=== PATIENT | male | born 1945 | race Caucasian/White ===

== ENCOUNTER 2017-12-06 08:29 | Outpatient (CLI) | payer MEDICARE ==
--- NOTE | 2017-12-06 10:35 | ULT ---
ULTRASOUND PELVIS: HISTORY: Inguinal hernia. COMPARISON: None. FINDINGS: The prostate is enlarged measuring approximately 4.6 x 4.2 x 4.2 cm. Within the left dependent porti on of the urinary bladder, there is a soft tissue nodule without posterior acoustic enhancement or sh adowing measuring 5 x 5 mm. This is nonmobile. In real-time, there is an indirect right-sided inguinal hernia lateral to the inferior epigastric ves sels containing only mesenteric fat and not bowel. IMPRESSION: 1. Indirect right side inguinal hernia is seen during real-time examination by the radiologist obed inradha fat. 2. A 5 x 5 mm nodule within the dependent portion of the urinary bladder which is nonmobile. This m ay represent a small malignant process versus adherent polyp or stone. 3. Prostatomegaly. CODE: T POS: [place]
--- NOTE | 2017-12-06 10:47 | ULT ---
ABDOMINAL ULTRASOUND: History: Abdominal pain. Comparison: CT abdomen, 04-30-10 FINDINGS: Visualized portion of the pancreas is unremarkable. The mid aorta measures up to 2.2 x 2.4 x 2.3 cm. Right kidney measures 9.1 cm in length and the left kidney measures 9.8 cm in length and the left kid candice measures 9.8 cm in length. Common bile duct measures 3 mm. Spleen measures 6.7 cm in length. Hepatic echotexture appears normal. Portal vein is patent with antegrade flow. 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 This is similar to the 2010 CT examination. POS: [facility]
== END 2017-12-06 08:30 | disposition home or self-care (01) ==
LOC: ULT 08:29
PROVIDERS: ATTEND Specialist
DX: K40.90 Unilateral inguinal hernia, without obstruction or gangrene, not specified as recurrent (principal); I77.811 Abdominal aortic ectasia; N42.89 Other specified disorders of prostate; N32.89 Other specified disorders of bladder
CPT/HCPCS: 76700; 76856

== ENCOUNTER 2018-01-16 15:03 | Outpatient (CLI) | payer MEDICARE ==
[2018-01-16 16:06] LABS: #Basophils 0.1 thou/uL (0.0-0.2); #Eosinphils 0.1 thou/uL (0.0-0.7); #Lymphocytes 1.7 thou/uL (1.20-3.40); #Monocytes 0.5 thou/uL (0.11-0.59); #Neutrophils 4.1 thou/uL (1.40-6.50); %Eosinophils 1.5 % (0.0-10.0); %Lymphocytes 26.1 % (21.0-51.0); %Monocytes 7.5 % (0.0-10.0); %Neutrophils 63.9 % (42.0-75.0); Hemoglobin 13.8 g/dL (14.0-18.0); Mean Corpuscular HGB CONC 32.2 g/dL (32.0-36.0); Mean Corpuscular Hemoglobin 30.7 pg (27.0-31.0); Mean Corpuscular Volume 95.4 fl (80.0-94.0); Mean Platelet Volume 7.5 fL (7.4-10.4); Platelet Count 187 thou/uL (130-400); RBC Distribution Width 12.9 % (11.5-14.5); Red Blood Cell (RBC) Count 4.48 mill/uL (4.70-6.10); White Blood Cell (WBC) Count 6.4 thou/uL (4.8-10.8)
[2018-01-16 16:31] LABS: Anion Gap 8 mmol/L (10-20); BUN (Urea Nitrogen) 15 mg/dL (8.4-25.7); Calc. Creatinine Clearance 0 mL/min (70-130); Calcium 9.8 mg/dL (7.8-10.44); Carbon Dioxide 32 mmol/L (23-31); Chloride 102 mmol/L (98-107); Estimated GFR-MDRD 89; Glucose 101 mg/dL (80-115); Potassium 3.9 mmol/L (3.5-5.1); Sodium 138 mmol/L (136-145)
--- NOTE | 2018-01-18 08:11 | EKG ---
Test Reason : Blood Pressure : / mmHG Vent. Rate : 067 BPM Atrial Rate : 067 BPM P-R Int : 174 ms QRS Dur : 082 ms QT Int : 406 ms P-R-T Axes : 078 027 020 degrees QTc Int : 429 ms Poor data quality, interpretation may be adversely affected Normal sinus rhythm with sinus arrhythmia When compared with ECG of 25-FEB-2015 12:10, Premature atrial complexes are no longer Present Nonspecific T wave abnormality now evident in Inferior leads Confirmed by SHIELA CASTANON ([id number]) on 01/18/2018 8:10:48 AM Referred By: JAIME Confirmed By:SHIELA CASTANON
== END 2018-01-16 15:04 | disposition home or self-care (01) ==
LOC: LABBT 15:03
PROVIDERS: ATTEND Urology
DX: Z01.818 Encounter for other preprocedural examination (principal); K40.91 Unilateral inguinal hernia, without obstruction or gangrene, recurrent; C67.2 Malignant neoplasm of lateral wall of bladder; N40.1 Benign prostatic hyperplasia with lower urinary tract symptoms
CPT/HCPCS: 80048; 81001; 85025; 87086; 93005; 93010

== ENCOUNTER 2018-01-18 09:26 | Outpatient (CLI) | payer MEDICARE ==
[~2018-01-18 09:26] MED LIST: Iopamidol 370 76% 100 ML VIAL ONE
--- NOTE | 2018-01-18 11:25 | CT ---
CT ABDOMEN AND PELVIS WITH AND WITHOUT CONTRAST: HISTORY: Malignant neoplasm of the urinary bladder. The patient had a bladder nodule seen on prior ultrasound . COMPARISON: Pelvic ultrasound from 12/06/2017. TECHNIQUE: Multiple contiguous axial images were obtained in a CT of the abdomen and pelvis with and without IV contrast. Post contrast images were obtained in the nephrographic and excretory phases. Coronal ref ormats were performed. FINDINGS: The patient is status post cholecystectomy. The liver, kidneys, adrenal glands, spleen, and pancreas are unremarkable. No free air, free fluid, or stranding changes are seen in the abdomen or pelvis. There are scattered diverticula in the colon. The small bowel and appendix are unremarkable. The prostate is enlarged. Along the left aspect of the urinary bladder wall, there is a small nodula rity, measuring approximately 4 mm in size. This is best appreciated on the coronal images, on image 86 of 141. No other bladder abnormality is seen. No abdominal or pelvic lymphadenopathy is seen. Atherosclerotic calcifications are seen in the aorta . Degenerative changes are seen in the spine. The visualized inferior thorax and abdominal wall soft t issues are unremarkable. IMPRESSION: 1. Small nodule on the urinary bladder wall, corresponds to abnormality seen on pelvic ultrasound, i n the urinary bladder. 2. Diverticulosis. POS: [facility]
== END 2018-01-18 09:27 | disposition home or self-care (01) ==
LOC: CT 09:26
PROVIDERS: ATTEND Urology
DX: C67.2 Malignant neoplasm of lateral wall of bladder (principal); K57.90 Diverticulosis of intestine, part unspecified, without perforation or abscess without bleeding
CPT/HCPCS: 74178

== ENCOUNTER 2018-01-19 10:31 | Day surgery (SDC) | payer MEDICARE ==
[2018-01-16 15:28] VITALS: BMI 20.9
[2018-01-19] MEDS ORDERED: Fentanyl 250 MCG/5 ML VIAL ONE (11:30)
[2018-01-19] MEDS ORDERED: Levofloxacin 500 mg/D5W 100 ml Premix Bag ONE (11:31)
[2018-01-19] MEDS ORDERED: Bupivacaine/Epinephrine 0.25% 30 ML VIAL ONE (11:35)
[2018-01-19] MEDS ORDERED: mitoMYcin 40 MG in Sterile Water 20 ML I-VESIC SCH (11:45)
[2018-01-19] MEDS ORDERED: Fentanyl 100 MCG/2 ML VIAL ONE (14:26)
[2018-01-19] MEDS ORDERED: ePHEDrine/0.9% NaCl/PF SYRINGE 50 mg/10 ml ONE (16:10)
[2018-01-19] MEDS ORDERED: Ketorolac Tromethamine 30 MG/ML VIAL ONE (16:10)
[2018-01-19] MEDS ORDERED: Glycopyrrolate 0.2 MG/ML 5 ML SYRINGE ONE (16:10)
[2018-01-19] MEDS ORDERED: Succinylcholine Chloride 20 MG/ML 10 ml SYRINGE FS ONE ×2 (16:10→19:19)
[2018-01-19] MEDS ORDERED: PROPOFOL 200 MG/20 ML VIAL ONE (16:10)
[2018-01-19] MEDS ORDERED: Lidocaine 1% PF 5 ML VIAL ONE (16:10)
[2018-01-19] MEDS ORDERED: PHENYLEPHRINE-NS 100 MCG/ML 10 ML SYRINGE ONE (16:10)
[2018-01-19] MEDS ORDERED: Tamsulosin HCl 0.4 MG CAP ONE (19:19)
[2018-01-19] MEDS ORDERED: Ondansetron HCl/PF 4 MG/2 ML Vial ONE (20:02)
[2018-01-19] MEDS ORDERED: Furosemide 20 MG/2 ML VIAL ONE (20:34)
--- NOTE | 2018-01-20 11:00 | OP ---
DATE OF PROCEDURE: 01/19/2018 PREOPERATIVE DIAGNOSIS: Right inguinal hernia. POSTOPERATIVE DIAGNOSIS: Right inguinal hernia. PROCEDURE PERFORMED: Da Eriberto robotic right inguinal hernia repair with mesh, 3DMax large. SURGEON: Kaushik Sandoval M.D. ANESTHESIA: General. ESTIMATED BLOOD LOSS: Minimal. COMPLICATIONS: None. SPECIMEN: None. TECHNIQUE: The patient was taken to the operating room and placed supine on the table. After genera l anesthetic was obtained, he was placed in lithotomy position. The urologist performed cystoscopy a nd biopsy of posterior bladder mass. The patient's abdomen was shaved, prepped, and draped in a ster ile fashion with completely new drapes. Curved incision made above the umbilicus. Cautery was used to dissect down to and score the fascia. Abdominal cavity entered bluntly using a Susan clamp. The 11 mm trocar was placed under direct vision. High-flow pneumoperitoneum was obtained. Left and righ t abdominal 8 mm trocars were placed. The patient was placed in Trendelenburg position. All ports w ere docked to the robot. The peritoneum was opened in the right lower quadrant exposing the preperit del real space. Preperitoneal space was bluntly dissected all the way down the pubic tubercle medially, anterior iliac crest laterally, iliopectineal line fully exposed. The indirect hernia sac dissected high up onto the peritoneum and out of the inguinal canal and 3DMax large mesh brought into the ster ile field and placed the preperitoneal space. The mesh completely covers the direct, indirect and fe moral areas. The mesh is sewn medially to the pubic tubercle and laterally to the posterior fascia u sing 2-0 Vicryl. The peritoneum is reapproximated using running Stratafix suture. All port sites ar e proceeding. All ports were removed under visualization and pneumoperitoneum is let down. PDS was used to close the fascial defect above the umbilicus. All incisions were irrigated and closed using 4-0 Monocryl and Dermabond. The patient was en route to recovery in stable condition. All counts, n eedle counts, and lap counts were correct.
== END 2018-01-19 21:34 | disposition home or self-care (01) ==
LOC: SDC 10:31
PROVIDERS: ATTEND Urology
PROC: 0YU54JZ Supplement Right Inguinal Region with Synthetic Substitute, Percutaneous Endoscopic Approach (ICD-10-PCS; principal; 2018-01-19)
PROC: 8E0W4CZ Robotic Assisted Procedure of Trunk Region, Percutaneous Endoscopic Approach (ICD-10-PCS; 2018-01-19)
PROC: 0TBB8ZX Excision of Bladder, Via Natural or Artificial Opening Endoscopic, Diagnostic (ICD-10-PCS; 2018-01-19)
DX: N32.89 Other specified disorders of bladder (principal); K40.90 Unilateral inguinal hernia, without obstruction or gangrene, not specified as recurrent; N40.1 Benign prostatic hyperplasia with lower urinary tract symptoms; F17.210 Nicotine dependence, cigarettes, uncomplicated; Z88.0 Allergy status to penicillin; Z98.890 Other specified postprocedural states
CPT/HCPCS: 49650; 51798; 52204; 88305; 96374 ×2; C1758; C1781; J9280; A4216; J1885; J1940; J1956; J2001; J2405; J2704; J3010; J7620

== ENCOUNTER 2019-03-15 07:58 | Outpatient (CLI) | payer MEDICARE ==
--- NOTE | 2019-03-15 08:16 | RAD ---
EXAM: Chest PA and lateral: HISTORY: Cough. COMPARISON: 07/12/2016 FINDINGS: Heart: Normal cardiac silhouette Aorta: Unremarkable Pulmonary vessels: Normal Costophrenic angles: Costophrenic angles are clear. Lungs: No consolidation or masses. Hyperinflation. Chronic changes. Pneumothorax: No pneumothorax Osseous structures: No osseous abnormalities IMPRESSION: 1. No acute cardiopulmonary process. 2. Hyperinflation. Chronic changes. 3. COPD.
--- NOTE | 2019-03-15 08:46 | ULT ---
EXAM: US Abdominal CLINICAL HISTORY: Pain. Nausea.. COMPARISON: None. FINDINGS: Pancreas: Obscured by bowel gas. IVC: Obscured by bowel gas. Aorta: Dilatation of the infrarenal abdominal aorta measuring 2.4 x 2.3 x 2.7 cm. Liver:Normal parenchymal echotexture. No hepatic masses or intrahepatic biliary dilatation. Contour o f the hepatic margin is maintained. Right hepatic lobe measures 12.2 cm. Main portal vein is patent. Appropriate directional flow. Gallbladder: Surgically absent. Whitley's sign:Not applicable. CBD: 0.34 cm. Right kidney: No hydronephrosis. Right kidney measuring 3.8 x 4.7 x 9.9 cm in length. Left kidney: No hydronephrosis. Left kidney measuring 5.0 x 9.8 x 4.3 cm. cm in length Spleen: 7.3 cm maximum dimension. Normal echotexture. IMPRESSION: 1. No sonographic evidence of hydronephrosis. 2. No acute abnormality in the visualized hepatic parenchyma. 2. Prominence of the infrarenal abdominal aorta, incompletely evaluated. Transcribed Date/Time: 03/15/2019 9:02 AM
== END 2019-03-15 07:59 | disposition home or self-care (01) ==
LOC: SCSULT 07:58
PROVIDERS: ATTEND Specialist
DX: R05 Cough (principal); K21.0 Gastro-esophageal reflux disease with esophagitis; R11.0 Nausea; R10.9 Unspecified abdominal pain; J44.9 Chronic obstructive pulmonary disease, unspecified; I71.4 Abdominal aortic aneurysm, without rupture
CPT/HCPCS: 71046; 76700

== ENCOUNTER 2019-09-13 13:02 | Outpatient (CLI) | payer MEDICARE ==
--- NOTE | 2019-09-13 13:45 | RAD ---
XR Hip Lt 2-3 View HISTORY: Injury, left hip pain. Contusion of left hip, initial encounter FINDINGS: No fracture or dislocation is identified. Degenerative changes are noted.
--- NOTE | 2019-09-13 14:12 | RAD ---
THREE VIEWS OF THE LEFT RIBS: DATE: 09/13/2019. COMPARISON: None. HISTORY: Rib pain. FINDINGS: There is no displaced left-sided rib fracture appreciated. There is atherosclerotic calcification in the aortic arch. There is mild pulmonary hyperinflation and increased linear interstitial density w ithin the imaged lung parenchyma. Clips in the right upper quadrant suggest prior cholecystectomy. IMPRESSION: No acute fracture is apparent. Interstitial prominence and pulmonary hyperinflation suggest chronic obstructive pulmonary disease in the proper clinical setting. If symptoms of left-sided rib pain per sist, chest CT recommended. POS: [place]
[2019-09-13 16:17] LABS: Bacteria/HPF None Seen HPF (None Seen); Bilirubin Negative (Negative); Blood, Urine Negative (Negative); Clarity Clear (Clear); Glucose, Urine (Dipstick) Normal (Negative); Leukocyte Negative Leu/uL (Negative); Nitrite Negative (Negative); Protein, Urine (Dipstick) 10 mg/dL (Neg-Trace); RBC/HPF 0-3 HPF (0-3); Squamous Epithelial None Seen HPF (0-3); WBC/HPF 0-3 HPF (0-3)
== END 2019-09-13 13:03 | disposition home or self-care (01) ==
LOC: SCSRAD 13:02
PROVIDERS: ATTEND Family Medicine
DX: R41.0 Disorientation, unspecified (principal); R07.81 Pleurodynia; S70.02XA Contusion of left hip, initial encounter
CPT/HCPCS: 81001; 87086

== ENCOUNTER 2022-03-25 10:10 | Outpatient (CLI) | payer MEDICARE | END 2022-03-25 10:11 | disposition home or self-care (01) | PROVIDERS: ATTEND Family Medicine | DX: Z74.09 Other reduced mobility (principal) ==

== ENCOUNTER 2025-04-29 19:32 | Inpatient (IN) | payer OTHER ==
[2025-04-29 19:50] LABS: #Basophils 0.04 10x3/uL (0.0-0.2); #Eosinophils 0.08 10x3/uL (0.0-0.7); #Monocytes 0.34 10x3/uL (0.11-0.59); #Neutrophils 4.05 10x3/uL (1.40-6.50); %Basophils 0.6 % (0.0-1.0); %Eosinophils 1.1 % (0.0-10.0); %Lymphocytes 36.9 % (21.0-51.0); %Monocytes 4.7 % (0.0-10.0); %Neutrophils 56.0 % (42.0-75.0); Hematocrit 49.7 % (42.0-52.0); Hemoglobin 15.5 g/dL (14.0-18.0); Mean Corpuscular Hemoglobin 29.8 pg (27.0-31.0); Mean Corpuscular Volume 95.6 fL (78.0-98.0); Platelet Count 146 10x3/uL (130-400); Red Blood Cell (RBC) Count 5.20 mill/uL (4.70-6.10); White Blood Cell (WBC) Count 7.23 10x3/uL (4.8-10.8)
[2025-04-29 20:13] LABS: Actual Bicarbonate (HCO3a) 26.3 mEq/L (22-28); Analyzer IN Cardio ER; Base Excess (BEa) -1.5 mEq/L (-2.0 to +3.0); CO2 Tension 56.0 mmHg (35.0-45.0); Calcium, Ionized (arterial) 1.25 mmol/L (1.12-1.30); Hematocrit-ABG 50 % (42.0-52.0); Hemoglobin (Hb) 16.9 g/dL (14.0-18.0); Potassium - ABG Lab 4.41 mmol/L (3.70-5.30); pH, Arterial 7.290 (7.35-7.45)
[2025-04-29 20:14] LABS: O2 Tension (PaO2), arterial 53.6 mmHg (> 70.0)
[2025-04-29 20:14] LABS: Troponin I Less than 0.010 ng/mL (< 0.028)
[2025-04-29 20:32] LABS: CAUTI Indications for Culture Alt mental st,lethar; Glucose, Urine (Dipstick) Normal (Negative); Leukocyte Negative Leu/uL (Negative); Protein, Urine (Dipstick) 70 mg/dL (Neg-Trace); RBC/HPF 0-3 HPF (0-3); Specific Gravity, Urine 1.013 (1.002-1.036); WBC/HPF 0-3 HPF (0-3)
[2025-04-29 20:34] LABS: Bacteria/HPF 1+ HPF (None Seen)
[2025-04-29 20:35] LABS: Urine Culture Reflex No No
[2025-04-29 20:57] LABS: ALT (SGPT) 11 U/L (Less than 45); AST (SGOT) 25 U/L (11-34); Albumin 3.5 g/dL (3.1-4.5); Alkaline Phosphatase 98 U/L (40-110); Anion Gap 19 mmol/L (10-20); BUN (Urea Nitrogen) 15 mg/dL (8.4-25.7); Bilirubin, Total 0.8 mg/dL (0.3-1.2); Calc. Creatinine Clearance 0 mL/min (70-130); Calcium 9.6 mg/dL (7.8-10.44); Carbon Dioxide 22 mmol/L (23-31); Chloride 105 mmol/L (98-107); Globulin 3.6 g/dL (2.4-3.5); Glucose 167 mg/dL (83-110); Potassium 3.9 mmol/L (3.5-5.1); Sodium 142 mmol/L (136-145)
[2025-04-29 21:51] LABS: Actual Bicarbonate (HCO3a) 26.0 mEq/L (22-28); Analyzer IN Cardio ER; Base Excess (BEa) -2.1 mEq/L (-2.0 to +3.0); CO2 Tension 57.4 mmHg (35.0-45.0); Calcium, Ionized (arterial) 1.19 mmol/L (1.12-1.30); Hematocrit-ABG 49 % (42.0-52.0); Hemoglobin (Hb) 16.7 g/dL (14.0-18.0); O2 Tension (PaO2), arterial 88.5 mmHg (> 70.0); Potassium - ABG Lab 4.11 mmol/L (3.70-5.30); pH, Arterial 7.274 (7.35-7.45)
[2025-04-29] MEDS ORDERED: Ondansetron PF 4 MG/2 ML Vial ONE (22:39)
[2025-04-30] MEDS ORDERED: Calcium Carbonate 500 MG ChewTAB PO PRN (00:01)
[2025-04-30] MEDS ORDERED: Ondansetron PF 4 MG/2 ML Vial IVP PRN (00:01)
[2025-04-30] MEDS ORDERED: Electrolyte Replacement Protocol 1 EACH FS SCH (00:15)
[2025-04-30] MEDS ORDERED: EPINEPHrine 1 MG/10 ML Abboject SYRINGE ONE (00:29)
[2025-04-30] MEDS ORDERED: NOREPINEPHRINE 8 MG/250 ML-D5W 250 ML ONE (00:31)
[2025-04-30 00:32] LABS: Magnesium 1.3 mg/dL (1.6-2.6)
[2025-04-30 00:44] LABS: Actual Bicarbonate (HCO3a) 22.4 mEq/L (22-28); Analyzer IN Cardio ER; Base Excess (BEa) -2.9 mEq/L (-2.0 to +3.0); CO2 Tension 40.9 mmHg (35.0-45.0); Calcium, Ionized (arterial) 1.14 mmol/L (1.12-1.30); Hematocrit-ABG 50 % (42.0-52.0); Hemoglobin (Hb) 16.9 g/dL (14.0-18.0); O2 Tension (PaO2), arterial 84.4 mmHg (> 70.0); Potassium - ABG Lab 3.99 mmol/L (3.70-5.30); pH, Arterial 7.357 (7.35-7.45)
[2025-04-30 00:48] LABS: Puncture Site Right Radial artery
[2025-04-30] MEDS ORDERED: cefTRIAXone (ROCEPHIN) 2 GM VIAL ONE (00:50)
[2025-04-30] MEDS ORDERED: Magnesium 2 GM/50 ML BAG (IN WATER) ONE (00:50)
[2025-04-30 00:51] LABS: ALV-art Gradient 220.975 mmHg (0-20)
[2025-04-30 00:56] LABS: Acetaminophen Less than 10 mcg/mL (Less than 10); Salicylate Less than 8.0 mg/dL (Less than 8.0)
[2025-04-30] MEDS ORDERED: Propofol BOLUS 1,000 MG/100 ML VIAL IV PRN (01:00)
[2025-04-30] MEDS ORDERED: Ventilator Sedation Protocol 1 EACH FS SCH (01:00)
[2025-04-30] MEDS ORDERED: DISCONTINUE PREVIOUS NARCOTIC PAIN MEDICATIONS AND BENZODIAZEPINES FS SCH (01:00)
[2025-04-30] MEDS ORDERED: Fentanyl BOLUS 100 ML IVPB PRN (01:00)
[2025-04-30] MEDS ORDERED: Albuterol 2.5 MG (3 mL) NEB NEB PRN (02:21)
[2025-04-30] MEDS: Acetaminophen 325 MG TAB PO SCH ×2 (02:37→06:32)
[2025-04-30 03:10] LABS: #Basophils 0.07 10x3/uL (0.0-0.2); #Eosinophils Less than 0.03 10x3/uL (0.0-0.7); #Monocytes 0.82 10x3/uL (0.11-0.59); #Neutrophils 14.78 10x3/uL (1.40-6.50); %Basophils 0.4 % (0.0-1.0); %Eosinophils 0.1 % (0.0-10.0); %Lymphocytes 3.5 % (21.0-51.0); %Monocytes 4.9 % (0.0-10.0); %Neutrophils 89.2 % (42.0-75.0); Hematocrit 55.9 % (42.0-52.0); Hemoglobin 17.2 g/dL (14.0-18.0); Mean Corpuscular Hemoglobin 30.1 pg (27.0-31.0); Mean Corpuscular Volume 97.7 fL (78.0-98.0); Platelet Count 141 10x3/uL (130-400); Red Blood Cell (RBC) Count 5.72 mill/uL (4.70-6.10); White Blood Cell (WBC) Count 16.58 10x3/uL (4.8-10.8)
[2025-04-30] MEDS: Magnesium 2 GM/50 ML(in water) 2 GM in Premix 1 BAG IVPB SCH (03:24)
[2025-04-30 03:45] LABS: ALT (SGPT) 15 U/L (Less than 45); AST (SGOT) 30 U/L (11-34); Albumin 2.9 g/dL (3.1-4.5); Alkaline Phosphatase 99 U/L (40-110); Anion Gap 19 mmol/L (10-20); BUN (Urea Nitrogen) 22 mg/dL (8.4-25.7); Bilirubin, Total 0.7 mg/dL (0.3-1.2); Calc. Creatinine Clearance 0 mL/min (70-130); Calcium 9.3 mg/dL (7.8-10.44); Carbon Dioxide 21 mmol/L (23-31); Chloride 105 mmol/L (98-107); Globulin 3.6 g/dL (2.4-3.5); Glucose 165 mg/dL (83-110); Magnesium 1.9 mg/dL (1.6-2.6); Potassium 4.0 mmol/L (3.5-5.1); Sodium 141 mmol/L (136-145)
[2025-04-30] MEDS: Mometasone 100 MCG/Formoterol 5 MCG 120 PUFF INHALER INH SCH (07:22)
[2025-04-30] MEDS: Pantoprazole 40 MG VIAL IVP SCH (08:44)
[2025-04-30] MEDS: Mupirocin 1 GM TUBE TP SCH (08:44)
[2025-04-30] MEDS: Azithromycin 250 MG TAB PER TUBE SCH (09:09)
[2025-04-30] MEDS ORDERED: Rocuronium Bromide 10 MG/ML (10ML VIAL) ONE ×2 (11:20→13:03)
[2025-04-30] MEDS ORDERED: Etomidate 40 MG (20 mL) VIAL ONE (11:20)
[2025-04-30] MEDS: cefTRIAXone\\ROCEPHIN 2 GM in Sodium Chloride 0.9% 100 ML IVPB SCH (12:09)
[2025-04-30] MEDS ORDERED: Ondansetron PF 4 MG/2 ML Vial ONE (13:03)
[2025-04-30] MEDS ORDERED: PROPOFOL 0 ML ONE (13:03)
[2025-04-30] MEDS ORDERED: fentaNYL PF 100 MCG/2 ML SYRINGE ONE (13:03)
[2025-04-30] MEDS ORDERED: Lidocaine 1% PF 5 ML VIAL ONE (13:03)
[2025-04-30] MEDS ORDERED: Lidocaine 2% 6 ML (Jelly) SYR ONE (13:04)
[2025-04-30] MEDS ORDERED: PHENYLEPHRINE-NS 100 MCG/ML 10 ML SYRINGE ONE (13:10)
[2025-04-30] MEDS: Albumin 5% 12.5 GM (250 mL) BOT IVPB SCH (13:32)
[2025-04-30] MEDS: NOREPINEPHRINE 8 MG/250 ML-D5W 250 ML IVPB PRN (13:50)
[2025-05-01 04:55] LABS: #Basophils Less than 0.03 10x3/uL (0.0-0.2); #Eosinophils Less than 0.03 10x3/uL (0.0-0.7); #Monocytes 0.69 10x3/uL (0.11-0.59); #Neutrophils 10.95 10x3/uL (1.40-6.50); %Basophils 0.2 % (0.0-1.0); %Eosinophils 0.0 % (0.0-10.0); %Lymphocytes 7.4 % (21.0-51.0); %Monocytes 5.4 % (0.0-10.0); %Neutrophils 86.1 % (42.0-75.0); Hematocrit 40.6 % (42.0-52.0); Hemoglobin 13.0 g/dL (14.0-18.0); Mean Corpuscular Hemoglobin 30.4 pg (27.0-31.0); Mean Corpuscular Volume 95.1 fL (78.0-98.0); Platelet Count 85 10x3/uL (130-400); Red Blood Cell (RBC) Count 4.27 mill/uL (4.70-6.10); White Blood Cell (WBC) Count 12.71 10x3/uL (4.8-10.8)
[2025-05-01 05:15] LABS: Anion Gap 17 mmol/L (10-20); BUN (Urea Nitrogen) 34 mg/dL (8.4-25.7); Calc. Creatinine Clearance 24 mL/min (70-130); Calcium 7.6 mg/dL (7.8-10.44); Carbon Dioxide 19 mmol/L (23-31); Chloride 105 mmol/L (98-107); Glucose 101 mg/dL (83-110); Magnesium 1.8 mg/dL (1.6-2.6); Potassium 4.5 mmol/L (3.5-5.1); Sodium 136 mmol/L (136-145)
[2025-05-01] MEDS: Magnesium 2 GM/50 ML(in water) 2 GM in Premix 1 BAG IVPB SCH ×2 (06:16→23:17)
[2025-05-01] MEDS: Furosemide 20 MG (2 mL) VIAL SLOW IVP SCH (06:16)
[2025-05-01 07:21] LABS: Actual Bicarbonate (HCO3a) 21.5 mEq/L (22-28); Base Excess (BEa) -2.9 mEq/L (-2.0 to +3.0); CO2 Tension 36.5 mmHg (35.0-45.0); Calcium, Ionized (arterial) 1.34 mmol/L (1.12-1.30); Hematocrit-ABG 44 % (42.0-52.0); Hemoglobin (Hb) 15.0 g/dL (14.0-18.0); O2 Tension (PaO2), arterial 69.2 mmHg (> 70.0); Potassium - ABG Lab 4.51 mmol/L (3.70-5.30); pH, Arterial 7.387 (7.35-7.45)
[2025-05-01 07:25] LABS: ALV-art Gradient 170.375 mmHg (0-20); Puncture Site Right Radial artery
[2025-05-01] MEDS ORDERED: Etomidate 40 MG (20 mL) VIAL ONE (10:39)
[2025-05-01] MEDS ORDERED: Rocuronium Bromide 10 MG/ML (10ML VIAL) ONE (10:39)
[2025-05-01] MEDS ORDERED: Ondansetron PF 4 MG/2 ML Vial ONE (10:39)
[2025-05-01] MEDS ORDERED: PROPOFOL 20 ML ONE (10:39)
[2025-05-01] MEDS ORDERED: PHENYLEPHRINE-NS 100 MCG/ML 10 ML SYRINGE ONE (12:48)
[2025-05-01] MEDS ORDERED: CEFAZOLIN 1 GM VIAL ONE (12:52)
[2025-05-02 03:44] LABS: Hematocrit 34.1 % (42.0-52.0); Hemoglobin 11.1 g/dL (14.0-18.0); Mean Corpuscular Hemoglobin 30.3 pg (27.0-31.0); Mean Corpuscular Volume 93.2 fL (78.0-98.0); Platelet Count 66 10x3/uL (130-400); Red Blood Cell (RBC) Count 3.66 mill/uL (4.70-6.10); White Blood Cell (WBC) Count 10.09 10x3/uL (4.8-10.8)
[2025-05-02 03:50] LABS: Anion Gap 12 mmol/L (10-20); BUN (Urea Nitrogen) 58 mg/dL (8.4-25.7); Calc. Creatinine Clearance 20 mL/min (70-130); Calcium 8.0 mg/dL (7.8-10.44); Carbon Dioxide 22 mmol/L (23-31); Chloride 105 mmol/L (98-107); Glucose 117 mg/dL (83-110); Magnesium 2.6 mg/dL (1.6-2.6); Potassium 4.4 mmol/L (3.5-5.1); Sodium 135 mmol/L (136-145)
[2025-05-02 04:21] LABS: Macrocytosis SLIGHT = 6-15 cells HPF (0-5); Platelet Adequacy Comment Platelets Decreased; Smudge Cells 1.9 %
[2025-05-02] MEDS: Sodium Bicarb 50 MEQ/50 ML Abboject 8.4% SYRINGE IVP SCH (05:23)
[2025-05-02 07:40] LABS: Actual Bicarbonate (HCO3a) 23.3 mEq/L (22-28); Base Excess (BEa) 0.0 mEq/L (-2.0 to +3.0); CO2 Tension 33.2 mmHg (35.0-45.0); Calcium, Ionized (arterial) 1.19 mmol/L (1.12-1.30); Hematocrit-ABG 33 % (42.0-52.0); Hemoglobin (Hb) 11.3 g/dL (14.0-18.0); O2 Tension (PaO2), arterial 75.9 mmHg (> 70.0); Potassium - ABG Lab 4.38 mmol/L (3.70-5.30); pH, Arterial 7.464 (7.35-7.45)
[2025-05-02 07:43] LABS: ALV-art Gradient 167.800 mmHg (0-20); Puncture Site Right Radial artery
[2025-05-02] MEDS: Heparin 5,000 UNITS/ML VIAL SC SCH (09:52)
[2025-05-03 04:46] LABS: Anion Gap 14 mmol/L (10-20); BUN (Urea Nitrogen) 60 mg/dL (8.4-25.7); Calc. Creatinine Clearance 37 mL/min (70-130); Calcium 7.9 mg/dL (7.8-10.44); Carbon Dioxide 22 mmol/L (23-31); Chloride 111 mmol/L (98-107); Glucose 101 mg/dL (83-110); Potassium 4.6 mmol/L (3.5-5.1); Sodium 142 mmol/L (136-145)
[2025-05-03 04:59] LABS: Hematocrit 29.6 % (42.0-52.0); Hemoglobin 9.4 g/dL (14.0-18.0); Mean Corpuscular Hemoglobin 30.2 pg (27.0-31.0); Mean Corpuscular Volume 95.2 fL (78.0-98.0); Platelet Count 51 10x3/uL (130-400); Red Blood Cell (RBC) Count 3.11 mill/uL (4.70-6.10); White Blood Cell (WBC) Count 7.29 10x3/uL (4.8-10.8)
[2025-05-03 06:28] LABS: Anisocytosis SLIGHT = 6-15 cells HPF (0-5); Macrocytosis SLIGHT = 6-15 cells HPF (0-5); Platelet Adequacy Comment Platelets Decreased; Polychromasia SLIGHT = 2-3 cells HPF (0-2); Smudge Cells 4.7 %
[2025-05-03 08:11] LABS: Actual Bicarbonate (HCO3a) 20.2 mEq/L (22-28); Base Excess (BEa) -4.4 mEq/L (-2.0 to +3.0); CO2 Tension 35.2 mmHg (35.0-45.0); Calcium, Ionized (arterial) 1.21 mmol/L (1.12-1.30); Hematocrit-ABG 31 % (42.0-52.0); Hemoglobin (Hb) 10.5 g/dL (14.0-18.0); O2 Tension (PaO2), arterial 77.9 mmHg (> 70.0); Potassium - ABG Lab 4.57 mmol/L (3.70-5.30); pH, Arterial 7.377 (7.35-7.45)
[2025-05-03 08:16] LABS: ALV-art Gradient 163.300 mmHg (0-20); Puncture Site Right Radial artery
[2025-05-04 04:14] LABS: #Basophils Less than 0.03 10x3/uL (0.0-0.2); #Eosinophils Less than 0.03 10x3/uL (0.0-0.7); #Monocytes 0.55 10x3/uL (0.11-0.59); #Neutrophils 7.63 10x3/uL (1.40-6.50); %Basophils 0.1 % (0.0-1.0); %Eosinophils 0.0 % (0.0-10.0); %Lymphocytes 2.7 % (21.0-51.0); %Monocytes 6.4 % (0.0-10.0); %Neutrophils 89.0 % (42.0-75.0); Hematocrit 28.0 % (42.0-52.0); Hemoglobin 9.0 g/dL (14.0-18.0); Mean Corpuscular Hemoglobin 30.3 pg (27.0-31.0); Mean Corpuscular Volume 94.3 fL (78.0-98.0); Platelet Count 66 10x3/uL (130-400); Red Blood Cell (RBC) Count 2.97 mill/uL (4.70-6.10); White Blood Cell (WBC) Count 8.57 10x3/uL (4.8-10.8)
[2025-05-04 04:29] LABS: Anion Gap 12 mmol/L (10-20); BUN (Urea Nitrogen) 53 mg/dL (8.4-25.7); Calc. Creatinine Clearance 62 mL/min (70-130); Calcium 8.0 mg/dL (7.8-10.44); Carbon Dioxide 23 mmol/L (23-31); Chloride 114 mmol/L (98-107); Glucose 165 mg/dL (83-110); Potassium 4.5 mmol/L (3.5-5.1); Sodium 144 mmol/L (136-145)
[2025-05-04] MEDS ORDERED: Glycopyrrolate 0.2 MG/ML 5 ML SYRINGE SLOW IVP ONE (10:17)
[2025-05-04] MEDS: Glycopyrrolate 0.4 MG/ 2 ML VIAL SLOW IVP SCH (11:21)
[2025-05-05 04:18] LABS: Hematocrit 28.4 % (42.0-52.0); Hemoglobin 9.1 g/dL (14.0-18.0); Mean Corpuscular Hemoglobin 30.3 pg (27.0-31.0); Mean Corpuscular Volume 94.7 fL (78.0-98.0); Platelet Count 97 10x3/uL (130-400); Red Blood Cell (RBC) Count 3.00 mill/uL (4.70-6.10); White Blood Cell (WBC) Count 10.39 10x3/uL (4.8-10.8)
[2025-05-05 04:19] LABS: Anion Gap 8 mmol/L (10-20); BUN (Urea Nitrogen) 45 mg/dL (8.4-25.7); Calc. Creatinine Clearance 70 mL/min (70-130); Calcium 8.1 mg/dL (7.8-10.44); Carbon Dioxide 25 mmol/L (23-31); Chloride 116 mmol/L (98-107); Glucose 161 mg/dL (83-110); Potassium 4.8 mmol/L (3.5-5.1); Sodium 144 mmol/L (136-145)
[2025-05-05 05:40] LABS: Anisocytosis SLIGHT = 6-15 cells HPF (0-5); Macrocytosis SLIGHT = 6-15 cells HPF (0-5); Ovalocytes SLIGHT = 2-5 cells HPF (0-1); Platelet Adequacy Comment Platelets Decreased; Polychromasia SLIGHT = 2-3 cells HPF (0-2); Smudge Cells 7.0 %
[2025-05-06 04:27] LABS: Hematocrit 29.6 % (42.0-52.0); Hemoglobin 9.4 g/dL (14.0-18.0); Mean Corpuscular Hemoglobin 30.2 pg (27.0-31.0); Mean Corpuscular Volume 95.2 fL (78.0-98.0); Platelet Count 138 10x3/uL (130-400); Red Blood Cell (RBC) Count 3.11 mill/uL (4.70-6.10); White Blood Cell (WBC) Count 12.97 10x3/uL (4.8-10.8)
[2025-05-06 05:03] LABS: Anion Gap 11 mmol/L (10-20); BUN (Urea Nitrogen) 40 mg/dL (8.4-25.7); Calc. Creatinine Clearance 86 mL/min (70-130); Calcium 8.2 mg/dL (7.8-10.44); Carbon Dioxide 24 mmol/L (23-31); Chloride 114 mmol/L (98-107); Glucose 132 mg/dL (83-110); Potassium 4.9 mmol/L (3.5-5.1); Sodium 144 mmol/L (136-145)
[2025-05-06 05:27] LABS: Platelet Adequacy Comment Platelets Normal; RBC Morphology Within Normal Limits; Smudge Cells 4.8 %
[2025-05-06] MEDS: Enoxaparin 40 MG (0.4 mL) SYRINGE SC SCH (10:12)
[2025-05-07 05:28] LABS: Anion Gap 9 mmol/L (10-20); BUN (Urea Nitrogen) 37 mg/dL (8.4-25.7); Calc. Creatinine Clearance 88 mL/min (70-130); Calcium 7.8 mg/dL (7.8-10.44); Carbon Dioxide 25 mmol/L (23-31); Chloride 113 mmol/L (98-107); Glucose 147 mg/dL (83-110); Potassium 4.4 mmol/L (3.5-5.1); Sodium 143 mmol/L (136-145)
[2025-05-07 05:36] LABS: Hematocrit 25.2 % (42.0-52.0); Hemoglobin 8.2 g/dL (14.0-18.0); Mean Corpuscular Hemoglobin 31.1 pg (27.0-31.0); Mean Corpuscular Volume 95.5 fL (78.0-98.0); Platelet Count 142 10x3/uL (130-400); Red Blood Cell (RBC) Count 2.64 mill/uL (4.70-6.10); White Blood Cell (WBC) Count 12.11 10x3/uL (4.8-10.8)
[2025-05-07 06:47] LABS: Anisocytosis SLIGHT = 6-15 cells HPF (0-5); Macrocytosis SLIGHT = 6-15 cells HPF (0-5); Nucleated RBC (Manual Ct) 1 % (0); Platelet Adequacy Comment Platelets Normal; Polychromasia SLIGHT = 2-3 cells HPF (0-2); Smudge Cells 4.8 %
[2025-05-08 08:04] LABS: Anion Gap 10 mmol/L (10-20); Carbon Dioxide 24 mmol/L (23-31)
[2025-05-08 08:05] LABS: BUN (Urea Nitrogen) 36 mg/dL (8.4-25.7); Calc. Creatinine Clearance 87 mL/min (70-130)
[2025-05-08 08:07] LABS: Calcium 7.9 mg/dL (7.8-10.44); Chloride 113 mmol/L (98-107); Glucose 186 mg/dL (83-110); Potassium 4.7 mmol/L (3.5-5.1); Sodium 142 mmol/L (136-145)
[2025-05-08 11:01] LABS: #Basophils Less than 0.03 10x3/uL (0.0-0.2); #Eosinophils Less than 0.03 10x3/uL (0.0-0.7); #Monocytes 0.53 10x3/uL (0.11-0.59); #Neutrophils 13.16 10x3/uL (1.40-6.50); %Basophils 0.1 % (0.0-1.0); %Eosinophils 0.1 % (0.0-10.0); %Lymphocytes 2.9 % (21.0-51.0); %Monocytes 3.6 % (0.0-10.0); %Neutrophils 88.6 % (42.0-75.0); Hematocrit 25.4 % (42.0-52.0); Hemoglobin 7.9 g/dL (14.0-18.0); Mean Corpuscular Hemoglobin 30.4 pg (27.0-31.0); Mean Corpuscular Volume 97.7 fL (78.0-98.0); Platelet Count 168 10x3/uL (130-400); Red Blood Cell (RBC) Count 2.60 mill/uL (4.70-6.10); White Blood Cell (WBC) Count 14.85 10x3/uL (4.8-10.8)
[2025-05-08 14:24] LABS: T4 4.02 ug/dL (4.87-11.72); Thyroid Stimulating Hormone 1.7459 uIU/mL (0.35-4.94)
[2025-05-09] MEDS: Scopolamine 1 mg/72 hour Patch TD SCH (00:21)
[2025-05-09 04:08] LABS: Hematocrit 25.4 % (42.0-52.0); Hemoglobin 7.9 g/dL (14.0-18.0); Mean Corpuscular Hemoglobin 30.3 pg (27.0-31.0); Mean Corpuscular Volume 97.3 fL (78.0-98.0); Platelet Count 214 10x3/uL (130-400); Red Blood Cell (RBC) Count 2.61 mill/uL (4.70-6.10); White Blood Cell (WBC) Count 14.83 10x3/uL (4.8-10.8)
[2025-05-09 04:48] LABS: Anion Gap 10 mmol/L (10-20); BUN (Urea Nitrogen) 38 mg/dL (8.4-25.7); Calc. Creatinine Clearance 101 mL/min (70-130); Calcium 7.9 mg/dL (7.8-10.44); Carbon Dioxide 25 mmol/L (23-31); Chloride 111 mmol/L (98-107); Glucose 169 mg/dL (83-110); Potassium 4.7 mmol/L (3.5-5.1); Sodium 141 mmol/L (136-145)
[2025-05-09 07:06] LABS: Anisocytosis SLIGHT = 6-15 cells HPF (0-5); Platelet Adequacy Comment Platelets Normal; Polychromasia SLIGHT = 2-3 cells HPF (0-2); Smudge Cells 2.0 %
[2025-05-10 04:36] LABS: Anion Gap 11 mmol/L (10-20); BUN (Urea Nitrogen) 34 mg/dL (8.4-25.7); Calc. Creatinine Clearance 108 mL/min (70-130); Calcium 8.2 mg/dL (7.8-10.44); Carbon Dioxide 26 mmol/L (23-31); Chloride 108 mmol/L (98-107); Glucose 162 mg/dL (83-110); Potassium 4.9 mmol/L (3.5-5.1); Sodium 140 mmol/L (136-145)
[2025-05-10 04:37] LABS: Hematocrit 26.9 % (42.0-52.0); Hemoglobin 8.5 g/dL (14.0-18.0); Mean Corpuscular Hemoglobin 30.2 pg (27.0-31.0); Mean Corpuscular Volume 95.7 fL (78.0-98.0); Platelet Count 271 10x3/uL (130-400); Red Blood Cell (RBC) Count 2.81 mill/uL (4.70-6.10); White Blood Cell (WBC) Count 16.46 10x3/uL (4.8-10.8)
[2025-05-10 05:19] LABS: Anisocytosis SLIGHT = 6-15 cells HPF (0-5); Nucleated RBC (Manual Ct) 1 % (0); Platelet Adequacy Comment Platelets Normal; Polychromasia SLIGHT = 2-3 cells HPF (0-2)
[2025-05-10] MEDS ORDERED: Sodium Bicarbonate 2.5 MEQ/5 ML SDV ONE (09:05)
[2025-05-10 11:41] LABS: CSF, Glucose 95.0 mg/dl (40-70); CSF, Protein 58.3 mg/dL (15-40)
[2025-05-10 11:48] LABS: CSF Source CSF
[2025-05-11 05:01] LABS: #Basophils 0.04 10x3/uL (0.0-0.2); #Eosinophils 0.12 10x3/uL (0.0-0.7); #Monocytes 0.94 10x3/uL (0.11-0.59); #Neutrophils 12.85 10x3/uL (1.40-6.50); %Basophils 0.3 % (0.0-1.0); %Eosinophils 0.8 % (0.0-10.0); %Lymphocytes 5.7 % (21.0-51.0); %Monocytes 6.0 % (0.0-10.0); %Neutrophils 82.5 % (42.0-75.0); Hematocrit 24.0 % (42.0-52.0); Hemoglobin 7.6 g/dL (14.0-18.0); Mean Corpuscular Hemoglobin 30.3 pg (27.0-31.0); Mean Corpuscular Volume 95.6 fL (78.0-98.0); Platelet Count 268 10x3/uL (130-400); Red Blood Cell (RBC) Count 2.51 mill/uL (4.70-6.10); White Blood Cell (WBC) Count 15.56 10x3/uL (4.8-10.8)
[2025-05-11 05:13] LABS: Anion Gap 11 mmol/L (10-20); BUN (Urea Nitrogen) 33 mg/dL (8.4-25.7); Calc. Creatinine Clearance 108 mL/min (70-130); Calcium 7.9 mg/dL (7.8-10.44); Carbon Dioxide 27 mmol/L (23-31); Chloride 109 mmol/L (98-107); Glucose 135 mg/dL (83-110); Potassium 4.3 mmol/L (3.5-5.1); Sodium 143 mmol/L (136-145)
[2025-05-12 01:36] LABS: HSV 1 - DNA, CSF Negative (Negative); HSV 2 - DNA, CSF Negative (Negative)
[2025-05-12 04:33] LABS: Actual Bicarbonate (HCO3v) 28.8 mEq/L (22-28); Base Excess 4.9 mEq/L (-2.0 to +3.0); Calcium, Ionized (venous) 1.15 mmol/L (1.16-1.32); Chloride (VBG) 109 mmol/L (98-106); Potassium (VBG) 4.03 mmol/L (3.70-5.30); Sodium 138 mmol/L (133-146)
[2025-05-12 04:35] LABS: #Basophils Less than 0.03 10x3/uL (0.0-0.2); #Eosinophils 0.10 10x3/uL (0.0-0.7); #Monocytes 0.61 10x3/uL (0.11-0.59); #Neutrophils 10.08 10x3/uL (1.40-6.50); %Basophils 0.2 % (0.0-1.0); %Eosinophils 0.8 % (0.0-10.0); %Lymphocytes 5.3 % (21.0-51.0); %Monocytes 5.1 % (0.0-10.0); %Neutrophils 84.3 % (42.0-75.0); Hematocrit 28.5 % (42.0-52.0); Hemoglobin 9.0 g/dL (14.0-18.0); Mean Corpuscular Hemoglobin 30.0 pg (27.0-31.0); Mean Corpuscular Volume 95.0 fL (78.0-98.0); Platelet Count 228 10x3/uL (130-400); Red Blood Cell (RBC) Count 3.00 mill/uL (4.70-6.10); White Blood Cell (WBC) Count 11.95 10x3/uL (4.8-10.8)
[2025-05-12 04:47] LABS: Anion Gap 7 mmol/L (10-20); BUN (Urea Nitrogen) 33 mg/dL (8.4-25.7); Calc. Creatinine Clearance 109 mL/min (70-130); Calcium 7.8 mg/dL (7.8-10.44); Carbon Dioxide 28 mmol/L (23-31); Chloride 109 mmol/L (98-107); Glucose 133 mg/dL (83-110); Potassium 4.1 mmol/L (3.5-5.1); Sodium 140 mmol/L (136-145)
[2025-05-12] MEDS: Furosemide 20 MG (2 mL) VIAL IVP SCH (09:40)
[2025-05-13 06:04] LABS: #Basophils Less than 0.03 10x3/uL (0.0-0.2); #Eosinophils 0.11 10x3/uL (0.0-0.7); #Monocytes 0.67 10x3/uL (0.11-0.59); #Neutrophils 13.08 10x3/uL (1.40-6.50); %Basophils 0.1 % (0.0-1.0); %Eosinophils 0.7 % (0.0-10.0); %Lymphocytes 4.9 % (21.0-51.0); %Monocytes 4.5 % (0.0-10.0); %Neutrophils 87.5 % (42.0-75.0); Hematocrit 24.5 % (42.0-52.0); Hemoglobin 7.6 g/dL (14.0-18.0); Mean Corpuscular Hemoglobin 30.4 pg (27.0-31.0); Mean Corpuscular Volume 98.0 fL (78.0-98.0); Platelet Count 343 10x3/uL (130-400); Red Blood Cell (RBC) Count 2.50 mill/uL (4.70-6.10); White Blood Cell (WBC) Count 14.96 10x3/uL (4.8-10.8)
[2025-05-13 06:18] LABS: Anion Gap 11 mmol/L (10-20); BUN (Urea Nitrogen) 30 mg/dL (8.4-25.7); Calc. Creatinine Clearance 107 mL/min (70-130); Calcium 8.7 mg/dL (7.8-10.44); Carbon Dioxide 31 mmol/L (23-31); Chloride 106 mmol/L (98-107); Glucose 122 mg/dL (83-110); Potassium 4.8 mmol/L (3.5-5.1); Sodium 143 mmol/L (136-145)
[2025-05-13 11:18] VITALS: BMI 22.4
[2025-05-14 04:18] LABS: #Basophils Less than 0.03 10x3/uL (0.0-0.2); #Eosinophils 0.08 10x3/uL (0.0-0.7); #Monocytes 0.75 10x3/uL (0.11-0.59); #Neutrophils 9.64 10x3/uL (1.40-6.50); %Basophils 0.2 % (0.0-1.0); %Eosinophils 0.7 % (0.0-10.0); %Lymphocytes 6.7 % (21.0-51.0); %Monocytes 6.6 % (0.0-10.0); %Neutrophils 84.1 % (42.0-75.0); Hematocrit 24.7 % (42.0-52.0); Hemoglobin 7.7 g/dL (14.0-18.0); Mean Corpuscular Hemoglobin 30.7 pg (27.0-31.0); Mean Corpuscular Volume 98.4 fL (78.0-98.0); Platelet Count 327 10x3/uL (130-400); Red Blood Cell (RBC) Count 2.51 mill/uL (4.70-6.10); White Blood Cell (WBC) Count 11.45 10x3/uL (4.8-10.8)
[2025-05-14 04:40] LABS: Anion Gap 12 mmol/L (10-20); BUN (Urea Nitrogen) 29 mg/dL (8.4-25.7); Calc. Creatinine Clearance 111 mL/min (70-130); Calcium 8.6 mg/dL (7.8-10.44); Carbon Dioxide 29 mmol/L (23-31); Chloride 105 mmol/L (98-107); Glucose 124 mg/dL (83-110); Potassium 4.9 mmol/L (3.5-5.1); Sodium 141 mmol/L (136-145)
[2025-05-14 10:53] LABS: Actual Bicarbonate (HCO3v) 27.0 mEq/L (22-28); Base Excess 3.1 mEq/L (-2.0 to +3.0); Calcium, Ionized (venous) 1.19 mmol/L (1.16-1.32); Chloride (VBG) 105 mmol/L (98-106); Hematocrit-VBG 25 % (42.0-52.0); Hemoglobin (Hb) 8.6 g/dL (12.6-17.4); Potassium (VBG) 4.58 mmol/L (3.70-5.30); Sodium 137 mmol/L (133-146)
[2025-05-15 06:04] LABS: #Basophils Less than 0.03 10x3/uL (0.0-0.2); #Eosinophils 0.08 10x3/uL (0.0-0.7); #Monocytes 0.78 10x3/uL (0.11-0.59); #Neutrophils 8.74 10x3/uL (1.40-6.50); %Basophils 0.2 % (0.0-1.0); %Eosinophils 0.8 % (0.0-10.0); %Lymphocytes 6.7 % (21.0-51.0); %Monocytes 7.4 % (0.0-10.0); %Neutrophils 83.4 % (42.0-75.0); Hematocrit 24.6 % (42.0-52.0); Hemoglobin 7.8 g/dL (14.0-18.0); Mean Corpuscular Hemoglobin 30.6 pg (27.0-31.0); Mean Corpuscular Volume 96.5 fL (78.0-98.0); Platelet Count 322 10x3/uL (130-400); Red Blood Cell (RBC) Count 2.55 mill/uL (4.70-6.10); White Blood Cell (WBC) Count 10.48 10x3/uL (4.8-10.8)
[2025-05-15 06:16] LABS: Anion Gap 11 mmol/L (10-20); BUN (Urea Nitrogen) 32 mg/dL (8.4-25.7); Calc. Creatinine Clearance 111 mL/min (70-130); Calcium 8.6 mg/dL (7.8-10.44); Carbon Dioxide 28 mmol/L (23-31); Chloride 105 mmol/L (98-107); Glucose 128 mg/dL (83-110); Potassium 4.8 mmol/L (3.5-5.1); Sodium 139 mmol/L (136-145)
[2025-05-16 06:07] LABS: Hematocrit 24.8 % (42.0-52.0); Hemoglobin 7.7 g/dL (14.0-18.0); Mean Corpuscular Hemoglobin 30.3 pg (27.0-31.0); Mean Corpuscular Volume 97.6 fL (78.0-98.0); Platelet Count 315 10x3/uL (130-400); Red Blood Cell (RBC) Count 2.54 mill/uL (4.70-6.10); White Blood Cell (WBC) Count 9.54 10x3/uL (4.8-10.8)
[2025-05-16 06:17] LABS: Anion Gap 12 mmol/L (10-20); BUN (Urea Nitrogen) 29 mg/dL (8.4-25.7); Calc. Creatinine Clearance 114 mL/min (70-130); Calcium 8.5 mg/dL (7.8-10.44); Carbon Dioxide 25 mmol/L (23-31); Chloride 105 mmol/L (98-107); Glucose 125 mg/dL (83-110); Potassium 4.2 mmol/L (3.5-5.1); Sodium 138 mmol/L (136-145)
[2025-05-16 06:32] LABS: Anisocytosis SLIGHT = 6-15 cells HPF (0-5); Platelet Adequacy Comment Platelets Normal; Polychromasia SLIGHT = 2-3 cells HPF (0-2)
[2025-05-17 05:25] LABS: Hematocrit 22.7 % (42.0-52.0); Hemoglobin 6.9 g/dL (14.0-18.0); Mean Corpuscular Hemoglobin 29.6 pg (27.0-31.0); Mean Corpuscular Volume 97.4 fL (78.0-98.0); Platelet Count 312 10x3/uL (130-400); Red Blood Cell (RBC) Count 2.33 mill/uL (4.70-6.10); White Blood Cell (WBC) Count 7.38 10x3/uL (4.8-10.8)
[2025-05-17 05:41] LABS: Anion Gap 12 mmol/L (10-20); BUN (Urea Nitrogen) 34 mg/dL (8.4-25.7); Calc. Creatinine Clearance 114 mL/min (70-130); Calcium 8.7 mg/dL (7.8-10.44); Carbon Dioxide 26 mmol/L (23-31); Chloride 104 mmol/L (98-107); Glucose 131 mg/dL (83-110); Potassium 3.8 mmol/L (3.5-5.1); Sodium 138 mmol/L (136-145)
[2025-05-17 05:53] LABS: Platelet Adequacy Comment Platelets Normal; Polychromasia SLIGHT = 2-3 cells HPF (0-2); Smudge Cells 4.9 %
[2025-05-17 07:59] VITALS: BP 127/55
[2025-05-17 09:06] VITALS: TEMP 99.6
== END 2025-05-17 11:03 | disposition hospice, inpatient (51) | DRG 521 ==
LOC: ERS 19:32 → CCU 23:38 → UNDOADMIN 04-30 00:06 → CCU 04-30 00:06
PROVIDERS: ADMIT Surgery; ATTEND Hospitalist
PROC: XX20X89 Monitoring of Brain Electrical Activity, Computer-aided Detection and Notification, New Technology Group 9 (ICD-10-PCS; 2025-04-30)
PROC: 0BH17EZ Insertion of Endotracheal Airway into Trachea, Via Natural or Artificial Opening (ICD-10-PCS; 2025-04-30)
PROC: 4A133R1 Monitoring of Arterial Saturation, Peripheral, Percutaneous Approach (ICD-10-PCS; 2025-04-30)
PROC: 3E033XZ Introduction of Vasopressor into Peripheral Vein, Percutaneous Approach (ICD-10-PCS; 2025-04-30)
PROC: 3E03329 Introduction of Other Anti-infective into Peripheral Vein, Percutaneous Approach (ICD-10-PCS; 2025-04-30)
PROC: 30233J1 Transfusion of Nonautologous Serum Albumin into Peripheral Vein, Percutaneous Approach (ICD-10-PCS; 2025-04-30)
PROC: 0T9B70Z Drainage of Bladder with Drainage Device, Via Natural or Artificial Opening (ICD-10-PCS; 2025-04-30)
PROC: 0D9670Z Drainage of Stomach with Drainage Device, Via Natural or Artificial Opening (ICD-10-PCS; 2025-04-30)
PROC: 3E0G76Z Introduction of Nutritional Substance into Upper GI, Via Natural or Artificial Opening (ICD-10-PCS; 2025-04-30)
PROC: 0DH67UZ Insertion of Feeding Device into Stomach, Via Natural or Artificial Opening (ICD-10-PCS; 2025-04-30)
PROC: 5A1945Z Respiratory Ventilation, 24-96 Consecutive Hours (ICD-10-PCS; 2025-04-30)
PROC: 5A1955Z Respiratory Ventilation, Greater than 96 Consecutive Hours (ICD-10-PCS; 2025-04-30)
PROC: 05HY33Z Insertion of Infusion Device into Upper Vein, Percutaneous Approach (ICD-10-PCS; 2025-04-30)
PROC: 3E043XZ Introduction of Vasopressor into Central Vein, Percutaneous Approach (ICD-10-PCS; 2025-04-30)
PROC: 3E04329 Introduction of Other Anti-infective into Central Vein, Percutaneous Approach (ICD-10-PCS; 2025-04-30)
PROC: 0SRR0JZ Replacement of Right Hip Joint, Femoral Surface with Synthetic Substitute, Open Approach (ICD-10-PCS; principal; 2025-05-02)
PROC: 009U3ZX Drainage of Spinal Canal, Percutaneous Approach, Diagnostic (ICD-10-PCS; 2025-05-02)
PROC: B01B1ZZ Fluoroscopy of Spinal Cord using Low Osmolar Contrast (ICD-10-PCS; 2025-05-02)
DX: S72.001A Fracture of unspecified part of neck of right femur, initial encounter for closed fracture (principal); A41.9 Sepsis, unspecified organism; G92.8 Other toxic encephalopathy; J18.9 Pneumonia, unspecified organism; R40.2112 Coma scale, eyes open, never, at arrival to emergency department; R40.2212 Coma scale, best verbal response, none, at arrival to emergency department; R40.2312 Coma scale, best motor response, none, at arrival to emergency department; J96.01 Acute respiratory failure with hypoxia; J96.02 Acute respiratory failure with hypercapnia; R65.21 Severe sepsis with septic shock; E43 Unspecified severe protein-calorie malnutrition; R40.20 Unspecified coma; E87.29 Other acidosis; J44.1 Chronic obstructive pulmonary disease with (acute) exacerbation; J44.0 Chronic obstructive pulmonary disease with (acute) lower respiratory infection; R64 Cachexia; N17.9 Acute kidney failure, unspecified; N18.4 Chronic kidney disease, stage 4 (severe); J90 Pleural effusion, not elsewhere classified; Z51.5 Encounter for palliative care; Z66 Do not resuscitate; J43.9 Emphysema, unspecified; F17.210 Nicotine dependence, cigarettes, uncomplicated; F88 Other disorders of psychological development; H91.93 Unspecified hearing loss, bilateral; E83.42 Hypomagnesemia; K21.9 Gastro-esophageal reflux disease without esophagitis; M10.9 Gout, unspecified; N40.0 Benign prostatic hyperplasia without lower urinary tract symptoms; I12.9 Hypertensive chronic kidney disease with stage 1 through stage 4 chronic kidney disease, or unspecified chronic kidney disease; D63.1 Anemia in chronic kidney disease; D69.6 Thrombocytopenia, unspecified; E87.8 Other disorders of electrolyte and fluid balance, not elsewhere classified; E03.9 Hypothyroidism, unspecified; S09.90XA Unspecified injury of head, initial encounter; W19.XXXA Unspecified fall, initial encounter; Z98.890 Other specified postprocedural states; Z88.0 Allergy status to penicillin; Z79.899 Other long term (current) drug therapy; Z79.82 Long term (current) use of aspirin; Z79.890 Hormone replacement therapy; Z97.4 Presence of external hearing-aid; Z68.22 Body mass index [BMI] 22.0-22.9, adult
CPT/HCPCS: 31500; 36415; 36416; 36600; 51702; 62270; 70450; 70551; 71045; 71260; 72125; 72170; 74177; 76014; 80048; 80053; 80307; 81001; 82140; 82533; 82805; 82945; 83605; 83735; 84157; 84436; 84439; 84443; 84481; 84484; 85025; 87040; 87070; 87086; 87102; 87205; 87529; 89051; 93005; 94002; 94003; 94640; 94660; 95705; 96365; 96367; 96375; C1713; C1776; G0390; J0133; J0165; J0690; J0692; J0696; J1100; J1644; J1650; J1940; J2250; J2270; J2405; J2470; J2704; J2919; J3475; J7030; J7120; J7620; P9045; Q9967

== ENCOUNTER 2025-05-17 11:12 | Inpatient (IN) | payer OTHER ==
[2025-05-17] MEDS ORDERED: Scopolamine 1 mg/72 hour Patch TOP PRN (11:30)
[2025-05-17] MEDS ORDERED: Ondansetron PF 4 MG/2 ML Vial IVP PRN (11:30)
[2025-05-17] MEDS ORDERED: Bisacodyl 10 MG SUPP PR PRN (11:32)
[2025-05-17] MEDS: Glycopyrrolate 0.4 MG/ 2 ML VIAL SLOW IVP PRN (11:44)
== END 2025-05-17 12:11 | disposition expired | DRG 177 ==
LOC: CCU 11:12
PROVIDERS: ADMIT Family Medicine; ATTEND Hospitalist
DX: J69.0 Pneumonitis due to inhalation of food and vomit (principal); J96.01 Acute respiratory failure with hypoxia; S72.009A Fracture of unspecified part of neck of unspecified femur, initial encounter for closed fracture; J44.1 Chronic obstructive pulmonary disease with (acute) exacerbation; G93.1 Anoxic brain damage, not elsewhere classified; Z66 Do not resuscitate
CPT/HCPCS: J2270